=== PATIENT | female | born 1990 | race Caucasian/White ===

== ENCOUNTER 2017-03-27 00:32 | Emergency (ER) | payer SELFPAY ==
[~2017-03-27] VITALS: Ht 165.1 cm; Wt 55.0 kg
[~2017-03-27 00:32] MED LIST: PROM25TA5 PO
[2017-03-27 00:35] VITALS: BP 117/73; PULSE 67; RESP 16; TEMP 98.2; O2SAT 98
[2017-03-27] MEDS ORDERED: SODIUM CHLOR 0.9% 1000 ML INJ 1,000 ML IV SCH (01:02)
[2017-03-27] MEDS ORDERED: SODIUM CHLORIDE 0.9% FLUSH 10 ML FLUSH IV FLUSH PRN (01:15)
[2017-03-27] MEDS ORDERED: FAMOTIDINE 20 MG/2 ML VIAL IV PUSH ONE (01:15)
[2017-03-27] MEDS ORDERED: PROCHLORPERAZINE INJ 10 MG/2 ML VIAL IV PUSH ONE (01:15)
[2017-03-27] MEDS ORDERED: PROMETHAZINE INJ 25 MG/ML VIAL IM ONE (02:00)
[2017-03-27 02:30] VITALS: BP 112/65; PULSE 56; RESP 16; O2SAT 96
[2017-03-27 03:16] LABS: BLOOD, URINE LARGE (NEG); COMMENT (UR) CULT NOT INDICATED; CULTURE IF INDICATED CULT NOT INDICATED; GLUCOSE,URINE NEG (NEG); KETONE, URINE 10 mg/dL (NEG); MUCUS URINE MANY /lpf (OCC); NITRITE,URINE NEG (NEG); PH, URINE 5.5 (5.0-8.5); SQUAMOUS EPITHELIAL CELL URINE 7 /hpf (0-5); URINE COLOR YELLOW (YELLW/STRAW)
--- NOTE | 2017-03-27 03:55 | PD ---
HPI Chief Complaint: GI Complaint Time Seen by Provider: 00:52 Travel History International Travel<30 days: No Contact w/Intl Traveler<30days: No Traveled to known affect area: No History of Present Illness HPI Patient is a 26 year old female with history of IVDA, who comes in complaining of nausea and vomiting for 3 days. She has been here multiple times in the past for this. She says he stomach is sore from vomiting, but she has not had any pain. She denies fevers or chills. She denies urinary symptoms. She took Zofran at home without relief. She says Phenergan has helped her in the past. PFSH Past Medical History Asthma: Yes Bipolar Disorder: Yes Cancer: No Cardiovascular Problems: No Diabetes: No Diminished Hearing: No Glaucoma: No Hepatitis: Yes Hiatal Hernia: No Hypertension: No Respiratory: Yes (ASTHMA) Immunizations Current: Yes Thyroid Disease: No ?: Not LMP: 03/21/17 Past Surgical History Other Surgery: No Social History Alcohol Use: No Tobacco Use: Yes (1/2 PPD) Substance Use: Yes (PT STATES" I DO EVERYTHING"RECENT IV DILAUDID,POT HEROIN) Allergies-Medications (Allergen,Severity, Reaction): Coded Allergies: hydrogen peroxide (Unverified Allergy, Severe, "BLOOD POISONING", 12/14/16) *MDRO Multi-Drug Resistant Organism (Verified Allergy, Unknown, 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 Reported Meds & Prescriptions Reported Meds & Active Scripts Active No Active Prescriptions or Reported Medications Review of Systems Except as stated in HPI: all other systems reviewed are Neg General / Constitutional: No: Fever, Chills HENT: No: Headaches, Lightheadedness Cardiovascular: No: Chest Pain or Discomfort, Palpitations Respiratory: No: Shortness of Breath Gastrointestinal: Positive: Nausea, Vomiting, No: Diarrhea Genitourinary: No: Dysuria Musculoskeletal: No: Myalgias, Edema Skin: No Rash, No Change in Pigmentation, No Lesions Neurologic: No: Weakness, Dizziness Physical Exam Narrative GENERAL: Awake and alert, in no acute distress. SKIN: Focused skin assessment warm/dry. No wounds or signs of infection. HEAD: Atraumatic. Normocephalic. EYES: Pupils equal and round. No scleral icterus. ENT: Mucous membranes pink and moist. NECK: Trachea midline. No JVD. CARDIOVASCULAR: Regular rate and rhythm. No murmur appreciated. RESPIRATORY: No accessory muscle use. Clear to auscultation. Breath sounds equal bilaterally. GASTROINTESTINAL: Abdomen soft, non-tender, nondistended. MUSCULOSKELETAL: No obvious deformities. No clubbing. No cyanosis. No edema. NEUROLOGICAL: Awake and alert. No obvious cranial nerve deficits. Motor grossly within normal limits. Normal speech. PSYCHIATRIC: Appropriate mood and affect; insight and judgment normal. Data Data Last Documented VS Vital Signs Date Time Temp Pulse Resp B/P (MAP) Pulse Ox O2 Delivery O2 Flow Rate FiO2 03/27/17 03:51 03/27/17 02:30 56 16 96 Room Air 03/27/17 00:35 98.2 Orders Orders Urinalysis - C+S If Indicated (03/27/17 01:02) Sodium Chlor 0.9% 1000 Ml Inj (Ns 1000 M (03/27/17 01:02) Sodium Chloride 0.9% Flush (Ns Flush) (03/27/17 01:15) Famotidine Inj (Pepcid Inj) (03/27/17 01:15) Ed Urine Pregnancytest Poc (03/27/17 01:02) Prochlorperazine Inj (Compazine Inj) (03/27/17 01:15) Promethazine Inj (Phenergan Inj) (03/27/17 02:00) Ed Discharge Order (03/27/17 03:55) Labs Laboratory Tests Test 03/27/17 02:55 Urine Color YELLOW Urine Turbidity HAZY Urine pH 5.5 Urine Specific [place] 1.035 Urine Protein 30 mg/dL Urine Glucose (UA) NEG mg/dL Urine Ketones 10 mg/dL Urine Occult Blood LARGE Urine Nitrite NEG Urine Bilirubin NEG Urine Urobilinogen 2.0 MG/DL Urine Leukocyte Esterase NEG Urine RBC 2 /hpf Urine WBC 3 /hpf Urine Squamous Epithelial Cells 7 /hpf Urine Mucus MANY /lpf Microscopic Urinalysis Comment CULT NOT INDICATED MDM Medical Decision Making Medical Screen Exam Complete: Yes Emergency Medical Condition: Yes Medical Record Reviewed: Yes Differential Diagnosis gastritis vs gastroenteritis vs cannabis hyperemesis syndrome Narrative Course Patient is a 26 year old female who comes in complaining of 3 days of vomiting. Exam shows no abdominal tenderness. Urine is negative. Given IM Phenergan with relief of her symptoms. She is drinking fluids without vomiting. Given prescription for Phenergan. Advised to avoid drug use. Advised to follow up with GI. Advised to return to the ED as needed for any worsening symptoms. Diagnosis Primary Impression: Vomiting Qualified Codes: R11.2 - Nausea with vomiting, unspecified Referrals: Luc Rahman MD call for appointment Patient Instructions: Acute Nausea and Vomiting (DC), General Instructions Additional Instructions: Avoid drug use. Drink plenty of fluids. Take Phenergan as needed for nausea. Follow-up with gastroenterology. Return to the ED as needed for any worsening symptoms. Scripts Promethazine (Phenergan) 25 Mg Tablet 25 MG PO Q6H Y for NAUSEA OR VOMITING, #7 TAB 0 Refills Prov: Haleigh Hurtado MD 03/27/17 Disposition: 01 DISCHARGE HOME Condition: Stable Haleigh Hurtado MD Mar 27, 2017 03:55
[2017-03-27] MEDS ORDERED: PROM25TA10 PO (04:12)
== END 2017-03-27 04:20 | disposition home or self-care (01) ==
LOC: NEPC 00:32
DX: R11.2 Nausea with vomiting, unspecified (principal)
CPT/HCPCS: 81001; 84703; 96372; 99285; J2550